=== PATIENT | male | born 1990 | race Caucasian/White ===

== ENCOUNTER 2017-05-03 14:44 | Emergency (ER) | payer MEDICAID ==
[~2017-05-03] VITALS: Ht 188 cm; Wt 80.0 kg
[2017-05-03 14:53] VITALS: BP 151/82
== END 2017-05-03 19:32 | disposition left against medical advice (07) ==
LOC: ER 14:55
DX: Z53.21 Procedure and treatment not carried out due to patient leaving prior to being seen by health care provider (principal)

== ENCOUNTER 2018-03-07 13:56 | Emergency (ER) | payer MEDICAID ==
[~2018-03-07] VITALS: Ht 188 cm; Wt 87.0 kg
[2018-03-07 14:19] VITALS: BP 147/82
== END 2018-03-07 19:40 | disposition left against medical advice (07) ==
LOC: ER 19:40
DX: R22.0 Localized swelling, mass and lump, head (principal); Z53.21 Procedure and treatment not carried out due to patient leaving prior to being seen by health care provider